=== PATIENT | male | born 1995 | race Asian ===

== ENCOUNTER 2016-10-02 13:33 | Emergency (ER) | payer OTHER ==
[2016-10-02 13:47] VITALS: PULSE 82
--- NOTE | 2016-10-02 14:45 | EDPHY ---
H & P Time Seen by Provider: 10/02/16 14:27 HPI/ROS: CHIEF COMPLAINT: Headache, epigastric/chest pain HISTORY OF PRESENT ILLNESS: Patient is a 21-year-old healthy male who presents emergency department with complaints of intermittent headache x3 days. Patient also complains of burning chest. He states this primarily occurs after meals. Especially occurs after he doubt. He also has mild burning sensation in the morning. He denies any shortness of breath. No cough. No nausea vomiting. No fever or chills. No leg pain or swelling. No recent travel. REVIEW OF SYSTEMS: My complete review of systems is negative except as mentioned in the HPI. Past Medical/Surgical History: Negative Past surgical history: Negative Social history: The patient does not smoke. He denies alcohol use. Smoking Status: Never smoked Physical Exam: Vitals noted GENERAL: Well-appearing, in no acute distress, alert. HEENT: Eyes normal to inspection, normal pharynx, no signs of dehydration. NECK: No thyromegaly, no lymphadenopathy, supple. RESPIRATORY: Clear to auscultation bilaterally, no rales, rhonchi or wheezing. CVS: Regular rate and rhythm, no rubs, murmurs, or gallops. ABDOMEN: Soft, nontender, nondistended, no organomegaly. BACK: Normal to inspection, no CVA tenderness. SKIN: Normal color, no rash, warm, dry. No pallor. EXTREMITIES: No pedal edema, no calf tenderness, no Homans sign or cords, no joint swelling. NEURO/PSYCH: Alert and oriented x3, normal mood and affect, normal motor sensory exam. Constitutional: Initial Vital Signs Temperature (C) 37.1 C 10/02/16 13:44 Heart Rate 82 10/02/16 13:44 Respiratory Rate 20 10/02/16 13:44 Blood Pressure 122/71 H 10/02/16 13:44 O2 Sat (%) 98 10/02/16 13:44 O2 Delivery Mode Room Air Allergies/Adverse Reactions: No Known Allergies Allergy (Unverified 10/02/16 13:43) Home Medications: Medication Instructions Recorded Famotidine [Pepcid 20 MG (*)] 20 mg PO BID #10 tab 10/02/16 IBUPROFEN 10/02/16 Medical Decision Making ED Course/Re-evaluation: In the emergency department patient has a normal exam. Based on his presentation to be placed on a prescription of Pepcid. He is given warnings prior to leaving. He will return with worsening symptoms. Differential Diagnosis: My differential includes but is not limited to GERD, esophagitis, hiatal hernia , ACS, acute MS, pericarditis, myocarditis, dissection, aneurysm, Pe Departure - Departure Disposition: Home, Routine, Self-Care Clinical Impression: Epigastric pain Condition: Good Instructions: Epigastric Pain (ED) Additional Instructions: Return with increasing chest pain, vomiting, fever, chills, shortness of breath or any other concerns. Referrals: [facility],. [Clinic] - 5-7 days, call for appt. Prescriptions: Famotidine [Pepcid 20 MG (*)] 20 mg PO BID #10 tab
[2016-10-02 14:56] VITALS: BP 94/71; RESP 16; TEMP 98.2; O2SAT 97
== END 2016-10-02 14:57 | disposition home or self-care (01) ==
DX: R10.13 Epigastric pain (principal)